=== PATIENT | female | born 1980 | race Caucasian/White ===

== ENCOUNTER 2020-01-06 17:36 | Inpatient (IN) | payer MEDICARE, SELFPAY ==
[2020-01-06] VITALS (9 sets, daily range): BP systolic 113–159; BP diastolic 75–94; PULSE 82–95; RESP 16–18; TEMP 36.7–36.9; O2SAT 91–97; BMI 48.5
--- NOTE | 2020-01-06 17:56 | CTR_ITS ---
PROCEDURE INFORMATION: Exam: CTA Left Lower Extremity With Contrast Exam date and time: 01/06/2020 6:23 PM Age: 39 years old Clinical indication: Injury or trauma; Fall; Fracture, traumatic; Closed fracture; Fibula and tibia; Left; Prior surgery; Additional info: Knee dislocation/fracture TECHNIQUE: Imaging protocol: Computed tomographic angiography of the Left lower extremity with intravenous contrast. 3D rendering (Not supervised by radiologist): MIP and/or 3D reconstructed images were created by the technologist. Radiation optimization: All CT scans at this facility use at least one of these dose optimization techniques: automated exposure control; mA and/or kV adjustment per patient size (includes targeted exams where dose is matched to clinical indication); or iterative reconstruction. Contrast material: OMNI 350; Contrast volume: 95 ml; Contrast route: INTRAVENOUS (IV); COMPARISON: DX Tibia and Fibula LEFT [id number] 01/06/2020 3:15 PM RADIATION DOSE METRICS: Total DLP (mGy-cm): 1.38 FINDINGS: Left femoral/popliteal arteries: Atherosclerotic calcifications with multifocal mild stenosis in the left superficial femoral artery. The left popliteal artery is small in size with plaque and mild-moderate stenosis. Left infrapopliteal arteries: The left anterior tibial artery is patent to the foot. The left posterior tibial artery appears occluded. The left peroneal artery is patent and collateralizes with the posterior tibial artery in the ankle. Reproductive: IUD located in the lower uterine segment and cervix. Bones/joints: Comminuted depressed fracture in the medial tibial plateau. Oblique fracture extending to the articular surface of the lateral tibial plateau and into the proximal tibial metaphysis. Mildly displaced fracture in the proximal tip of the left fibula. Old healed fractures in the distal left tibia and fibula. Screws in the mid left tibia. Left knee lipohemarthrosis, with extension into a popliteal cyst. Soft tissues: Mild left prepatellar and pretibial soft tissue edema. CT/CT angio [facility] [id number] IMPRESSION: 1. Fractures involving the medial and lateral left tibial plateau and proximal metaphysis. 2. Proximal left fibula fracture. 3. Left knee lipohemarthrosis. 4. Atherosclerotic disease in the left superficial femoral and popliteal artery with mild to moderate stenosis of the popliteal artery. This is most likely atherosclerotic in etiology. No evidence for transsection of the artery or definite dissection. 5. Obstruction of the left posterior tibial artery which is reconstituted in the ankle. Radiation Dose CTDIVOL = (mGy): DLP = 2041.38 (mGy-cm)
[2020-01-06] MEDS: ondansetron 2 mg/ML SDV 2 mL 4 MG IVP ×2 (18:20→22:44)
[2020-01-06] MEDS: HYDROmorphone 1 mg/mL INJ 1 mL 0.5 MG IVP ×2 (18:24→21:24)
[2020-01-06] MEDS: iohexol 350 mg/mL 100 mL Btl IV (18:54)
[2020-01-06 19:51] LABS: Basophils # 0.1 10^3/uL (0.0-0.1); Basophils % 0.5 %; Eosinophils % 0.3 %; Hematocrit 35.5 % (37.0-47.0); Hemoglobin 11.6 g/dL (11.5-15.3); Lymphocytes % 20.1 %; Mean Corpuscular HGB Conc 32.7 g/dL (30.0-36.0); Mean Corpuscular Hemoglobin 31.3 pg (28.0-34.0); Mean Corpuscular Volume 95.7 fL (81-99); Mean Platelet Volume 11.2 fL (7.4-10.4); Monocytes # 0.6 10^3/uL (0.2-0.9); Monocytes % 5.6 %; Neutrophils # 7.31 10^3/uL (1.8-7.7); Neutrophils % 73.3 %; Nucleated Red Blood Cells % 0 %; Platelet Count 221 10^3/cmm (130-400); Red Blood Count 3.71 10^6/uL (4.1-5.3); Red Cell Distribution Width 12.2 % (12.1-15.1)
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
[2020-01-06 20:08] LABS: Alanine Aminotransferase 16 U/L (0-33); Albumin Level 3.1 g/dL (3.5-5.2); Alkaline Phosphatase 119 IU/L (35-105); Aspartate Amino Transferase 17 U/L (0-32); Blood Urea Nitrogen 12 mg/dL (6-20); Calcium 8.6 mg/dL (8.5-10.5); Carbon Dioxide 26 mmol/L (22-29); Chloride 102 mmol/L (98-107); Glomerular Filtration Rate 110.2 mL/min (90-130); Glucose 321 mg/dL (65-115); Osmolality Calculated 296 mOsm/kg (285-295); Sodium 137 mmol/L (136-145); Total Bilirubin 0.3 mg/dL (0.15-1.2); Total Protein 6.1 g/dL (6.6-8.7)
[2020-01-06 20:12] LABS: Anion Gap 13.4 (5-19); Potassium 4.4 mmol/L (3.5-5.1)
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
[2020-01-06] MEDS: insulin aspart 70/30 100 units/1 mL 12 UNIT SUBCUT (21:54)
--- NOTE | 2020-01-06 22:12 | PC.NURSE ---
Wrong insulin ordered. Physician changed.
--- NOTE | 2020-01-06 22:52 | PC.NURSE ---
Patient blood glucose is 290, nurse was informed
[2020-01-07] VITALS (27 sets, daily range): BP systolic 116–186; BP diastolic 70–98; PULSE 74–118; RESP 16–22; TEMP 36.5–37.4; O2SAT 94–100
--- NOTE | 2020-01-07 | SCC_ITS ---
Procedure Done: ORIF left Bicodylar tibial plateau fracture 108.4 seconds of fluoroscopic guidance, for a cumulative dose of 8.85 mGy, was provided to Dr. Hutson by the radiology department. C-arm images of the LEFT knee were saved for the patient's permanent record. [facility]
[2020-01-07] MEDS: sodium chloride 0.9% 1,000 ML 50 ML IV ×2 (00:27→19:34)
[2020-01-07 00:46] LABS: Glucose Point of Care 271 mg/dL (70-110)
[2020-01-07] MEDS: HYDROmorphone 1 mg/mL INJ 1 mL 2 MG IVP ×3 (01:50→23:36)
[2020-01-07] MEDS: ondansetron 2 mg/ML SDV 2 mL 4 MG IVP ×5 (04:47→17:56)
[2020-01-07 06:01] LABS: Basophils % 0.4 %; Eosinophils # 0.1 10^3/uL (0.0-0.8); Eosinophils % 0.6 %; Hematocrit 37.5 % (37.0-47.0); Hemoglobin 11.8 g/dL (11.5-15.3); Lymphocytes # 1.9 10^3/uL (0.8-4.8); Lymphocytes % 23.4 %; Mean Corpuscular HGB Conc 31.5 g/dL (30.0-36.0); Mean Corpuscular Hemoglobin 30.9 pg (28.0-34.0); Mean Corpuscular Volume 98.2 fL (81-99); Mean Platelet Volume 11.5 fL (7.4-10.4); Monocytes # 0.7 10^3/uL (0.2-0.9); Monocytes % 8.5 %; Neutrophils # 5.43 10^3/uL (1.8-7.7); Neutrophils % 66.9 %; Nucleated Red Blood Cells % 0 %; Platelet Count 228 10^3/cmm (130-400); Red Blood Count 3.82 10^6/uL (4.1-5.3); Red Cell Distribution Width 12.5 % (12.1-15.1); White Blood Count 8.1 10^3/uL (4.0-10.0)
[2020-01-07 06:22] LABS: Anion Gap 13.3 (5-19); Blood Urea Nitrogen 14 mg/dL (6-20); Calcium 8.7 mg/dL (8.5-10.5); Carbon Dioxide 27 mmol/L (22-29); Chloride 98 mmol/L (98-107); Glomerular Filtration Rate 92.2 mL/min (90-130); Glucose 301 mg/dL (65-115); Osmolality Calculated 290 mOsm/kg (285-295); Potassium 4.3 mmol/L (3.5-5.1); Sodium 134 mmol/L (136-145)
[2020-01-07 07:25] LABS: Glucose Point of Care 284 mg/dL (70-110)
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
--- NOTE | 2020-01-07 10:57 | ECG_ITS ---
[facility] Test Date: 2020-01-07 Pat Name: Belkys Ramon Department: Room: 277 Gender: Female National Coverage Specialist: : 1980 Requested By: Riki Estrada Order Number: [id number] Emma MD: Bertha Randall M.D. 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 [id number]
--- NOTE | 2020-01-07 11:01 | PM.PN ---
Subjective Subjective: Interval history: Patient is nauseous this morning during my evaluation. She is vomiting green bilious fluid. She is convinced that she is nauseous because she did not eat anything for the last 24 hours. She denies chest pain or shortness of breath. She denies abdominal pain. She denies any problems with bowel movement or urination. She currently has Bain catheter. She had mechanical fall with tib-fib fracture. She just received analgesics earlier. She reports that if she tries to fall asleep her nausea goes away. Reports that when she is awake her nausea comes back. She is type I diabetic since age 6. She denies any previous history of heart disease or stroke. She reports that she is not very active but frequently walks to the barn and back. [place] [address] Reports that she always walks to the barn and back with her daughter or next to her because I am clumsy and I do not want to fall . She denies chest pain with exertion and reports that she may get a little bit of dyspnea with mentioned activity for short period of time and is been unchanged for many years. Vitals/I&O/Wt Last Vital Signs Temp 98.7 F 01/07/20 08:00 Pulse 88 01/07/20 08:00 Resp 18 01/07/20 08:09 BP 122/75 01/07/20 08:00 Pulse Ox 98 01/07/20 08:00 01/06/20 01/07/20 01/07/20 22:59 06:59 14:59 Output Total 1500 / 1500 Balance -1500 / -1500 Weight last 48 hrs Weight 124.284 kg Physical Exam Const: COMMON NORMALS: no acute distress and patient oriented x3 Resp: COMMON NORMALS: normal respiratory effort and clear to auscultation bilaterally AUSCULTATION: clear to auscultation bilaterally Cardio: COMMON NORMALS: regular rate, regular rhythm and S2 normal heart sound present RATE: regular rate RHYTHM: regular rhythm HEART SOUNDS: S2 normal heart sound present OTHER: No lower extremity edema GI: COMMON NORMALS: Normal to inspection, nondistended, normoactive bowel sounds present, Soft to palpation and non-tender PALPATION: Yes Soft to palpation Neuro: COMMON NORMALS: patient oriented x3 and no focal motor deficits Data : 01/07/20 05:21 11/20/20 05:21 A&P Assessment and plan (1) Left fibular fracture: Status: Acute (2) Tibial plateau fracture, left: Status: Acute (3) Hyperglycemia: Status: Acute Additional A&P Information Left tibial and fibular fracture No hemodynamic compromise noted Lower extremity pulses intact Her lower extremity will be splinted in the ER again Orthopedic surgeon is consulted We will keep her n.p.o. after midnight Dilaudid for analgesia along bowel regimen Perioperative management: Patient is independent for daily activities fully functional, does not need any cardiac work-up before any surgical intervention, she will need good wound care postoperatively considering suboptimally controlled hyperglycemia, holding losartan Type 1 diabetes with hyperglycemia Patient is stating that her last A1c was above 10 Hyperglycemia without DKA, in the ER she is getting long-acting insulin, considering n.p.o. status I will keep her on low-dose sliding scale, check blood sugar every 6 hours, we will keep her on normal saline fluid resuscitation for now once she is below 200 consider adding D5 half-normal saline fluid resuscitation Considering suboptimal control type 1 diabetes this might delay her wound healing, History of depression No acute exacerbation Patient seems very concerned about her telemetry her daughter who has PTSD(after father's secondary to cancer complications) Holding antidepressants for now N.p.o. DVT prophylaxis: Considering tibiofibular fracture would avoid putting compression stockings on left leg, right leg I would use compression device to prevent DVT, avoid anticoagulant agent, she might need surgical intervention in the morning Full code PLAN: Start patient on telemetry and check EKG and troponin. Patient's nausea is likely related to opioid medication but because of history of diabetes will further evaluate and monitor. Obtain UA to rule out UTI. Attestations Medical Necessity Statement*: Patient with tib-fib fracture requires close inpatient monitoring and treatment including surgical intervention. 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
[2020-01-07 11:05] LABS: Glucose Point of Care 272 mg/dL (70-110)
--- NOTE | 2020-01-07 11:07 | PC.CHAP ---
Pastoral Care Encounter/Spiritual Assessment Type of Contact [] Declined plate colorer visit [] Patient/Family/Request visit [] Outpatient visit [] Follow-up visit [] Physician referral [] Code/Alert [] Routine visit [] Staff referral [] Actively dying [xx] Patient sleeping [] Family support [] [] Out of room [] Palliative care [] [] Receiving care in room [] Pre-surgical visit [] Trauma [] Long length of stay [] ICU visit [xx] Other: follow up needed. Relational/Emotional Strength [] Patient feels connected with others/family/visitors/staff [] Distress [] Loneliness/isolation [] Abandonment Spirituality of Patient [] Person of Radha [] Attends Tenriism of their Radha [] Believes in Prayer [] Reads Bible or Yarsanism materials [] There are Spiritual issues to be addressed Bookkeeper Assistant Interventions [] Prayer [] Active listening [] Non-anxious presence [] Spiritual/emotional support [] Crisis/trauma care [] Spiritual counseling [] Bereavement support [] Provided bereavement packet [] Provided Bible/devotional materials [] Provided toy/stuffed animal, coloring book to patient or family member [] Provided Communion [] Anointing/[place] [] Salvation [] Completed spiritual assessment [] Other: Impact on Illness or Injury [] Angry [] Fearful [] Anxious [] Often cries [] Exhaustion [] Unable to work [] Unable to attend church [] Unable to walk/stand [] Unable to read [] Unable to drive [] Unable to eat/drink [] Unable to sleep [] Unable to be with family [] Patient intubated [] Other: Summary Pt on pain meds and will be sleeping for lengthy time. Time spent with patient
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
[2020-01-07 11:40] LABS: Bilirubin Urine Neg (Negative); Blood Urine 2+ (Negative); Glucose Urine UA 4+ (Normal); Ketones Urine 1+ (Negative); Leukocyte Esterase Urine 2+ (Negative); Nitrate Urine Negative (Negative); Protein Urine Neg (Negative); Urine Appearance Cloudy (CLEAR); Urine Color Yellow (Yellow); Urobilinogen Urine Norm (Negative); pH Urine 5 (5-7)
[2020-01-07 11:41] LABS: Add Urine Culture? Yes; Bacteria Urine 3+ /hpf; RBC Urine 0-4 /hpf (0-2); Squamous Epithelial Cell Urine 0-4 /hpf (0-5); WBC Urine 40-55 /hpf (0-5)
[2020-01-07 11:58] LABS: Troponin T (5th) Once 7 ng/L (0-10)
--- NOTE | 2020-01-07 13:35 | ECG_ITS ---
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 Measurements Intervals [place] Rate: 96 P: 73 UT: 142 QRS: 33 QRSD: 88 T: 38 QT: 355 QTc: 450 Interpretive Statements SINUS RHYTHM Compared to ECG 01/07/2020 11:38:22 No significant changes Electronically Signed On 01-07-2020 19:57:19 ENVIRONMENTAL SAFETY SPECIALIST by Bertha Randall M.D. [email or web address]
--- NOTE | 2020-01-07 14:13 | W.PM.OPSUD ---
Surgery/Procedure H&P Update DATE OF PROCEDURE: January 07, 2020 DATE H&P PERFORMED: 01/06/20 H&P UPDATE INFORMATION: I have reviewed H&P completed within last 30 days, I have examined patient prior to procedure and No changes to prior documentation PREOP DIAGNOSIS: Tibial plateau fracture PLANNED PROCEDURE: Operation Date: 01/07/20 14:45 Proposed Procedures p ORIF Tibial Plateau(Left) - Cruzito Hutson DO
[2020-01-07] MEDS: fentaNYL 50 mcg/mL INJ 2mL 100 MCG IVP (14:22)
--- NOTE | 2020-01-07 14:25 | SUR.PREOP ---
Pt with complaint of severe left tib/fib pain. Good left pedal pulse. Order recieved from doctor Kaelyn to give pain medication. Pt also medicated for nausea.
--- NOTE | 2020-01-07 14:36 | SUR.PREOP ---
ice pack applied to affected area. .
--- NOTE | 2020-01-07 16:25 | SUR.OPER ---
Family (zahira) Notified Of Patient's Status Via Phone.
[2020-01-07 17:14] LABS: Glucose Point of Care 290 mg/dL (70-110)
--- NOTE | 2020-01-07 17:22 | P.OP_ITS ---
Operative Report Date of procedure: January 07, 2020 Pre-op Diagnosis: Tibial plateau fracture left Post-op diagnosis: same Procedure Done: ORIF left Bicodylar tibial plateau fracture Surgeon: Cruzito Hutson Anesthesia: General Estimated blood loss (mL): 25 Condition: stable Disposition: PACU Procedure: Patient was brought to the operative suite placed in the supine position all areas impingement well-padded patient's prepped and draped normal sterile fashion skin was made over the lateral aspect of the to plateau. Fracture was reduced with traction a [place] plate was placed with a 10 hole plate multiple screws were placed approximately 3 screws placed distal to the fracture AP and lateral fluoroscopy ensured the fracture was improved position wounds were irrigated closed with Vicryl and christiano sterile dressings applied and patient is transferred to the PACU in stable condition temperature care and assist as [facility] assist
--- NOTE | 2020-01-07 17:23 | XR_ITS ---
WS: [id number] XR knee LT 1-2V [id number] REASON FOR EXAM: LEG FRACTURE FINDINGS: Moderate degenerative arthropathy in the patellofemoral joint space. Plate and screw fixation of bilateral tibial plateau fractures. Bony structure and surgical appliance appear in proper position and alignment. Medial and lateral knee joint spaces are well preserved. XR/XR knee LT 1-2V [id number] IMPRESSION: Fixation of tibial fracture as above.
[2020-01-07] MEDS: fentaNYL 50 mcg/mL INJ 2mL IVP ×2 (17:30→17:35)
--- NOTE | 2020-01-07 17:30 | SUR.OPER ---
dr manuel attempted to call Matthias (family) via phone and phone service stated phone disconnected. dr. manuel contacted nurse Ok about disconnected phone line. attempted the phone # again and received phone disconnected message.
[2020-01-07] MEDS: gabapentin 300 mg Capsule PO (17:50)
[2020-01-07] MEDS: oxyCODONE 10 mg ER (12 HR) Tablet PO (18:00)
[2020-01-07] MEDS: sodium chloride 0.9% 1,000 ML 30 ML IV (18:29)
--- NOTE | 2020-01-07 18:48 | ANE.PACU2 ---
Inpatient post-anesthesia follow up: Airway intact: Yes Vital signs: Temperature 98.2 F Pulse Rate [Apical ] 93 Pulse Rate 104 Respiratory Rate 20 Blood Pressure [Ri ght Arm] 141/94 Blood Pressure 156/83 Pulse Oximetry 96 Oxygen Delivery Me thod Room Air Oxygen Flow Rate 8 Fraction of Inspir ed Oxygen Hydration adequate: Yes Nausea and vomiting: No Pain level: 4 Mental status: Baseline
[2020-01-07] MEDS: diphenhydrAMINE 50 mg Capsule PO (19:31)
[2020-01-07] MEDS: cefTRIAXone 2,000 MG in sodium chloride 0.9% (plus) 50 ML 100 MG IV (19:34)
[2020-01-07] MEDS: HYDROcodone-acetaminophen 5-325 mg Tablet 1 TAB PO (21:02)
[2020-01-07] MEDS: acetaminophen 325 mg Tablet 650 MG PO (21:03)
[2020-01-07 21:14] LABS: Glucose Point of Care 390 mg/dL (70-110)
[2020-01-08] VITALS (13 sets, daily range): BP systolic 106–134; BP diastolic 62–75; PULSE 95–108; RESP 16–22; TEMP 36.7–37.4; O2SAT 93–97
[2020-01-08] MEDS: HYDROcodone-acetaminophen 5-325 mg Tablet 1 TAB PO ×2 (03:22→10:28)
[2020-01-08] MEDS: HYDROmorphone 1 mg/mL INJ 1 mL 2 MG IVP ×3 (05:58→21:38)
[2020-01-08] MEDS: enoxaparin 40 mg/0.4 mL Syringe SUBCUT (06:31)
[2020-01-08 06:47] LABS: Glucose Point of Care 322 mg/dL (70-110)
--- NOTE | 2020-01-08 08:14 | P.PN_ITS ---
Subjective Subjective: Interval history: Patient doing well in bed pain is significantly better than it was yesterday. I discussed going home with her and she was agreeable to do this. She will likely need a walker to ambulate. Vitals/I&O/Wt Last Vital Signs Temp 99.3 F 01/08/20 07:36 Pulse 105 H 01/08/20 07:36 Resp 18 01/08/20 07:36 BP 106/70 01/08/20 07:36 Pulse Ox 95 01/08/20 07:36 01/07/20 01/08/20 01/08/20 22:59 06:59 14:59 Intake Total 1015.833 / 1015.833 300 / 1315.833 Output Total 1250 / 1575 900 / 2475 Balance -234.167 / -559.167 -600 / -1159.167 Weight last 48 hrs Weight 274 lb Physical Exam Narrative: EXAM NARRATIVE: Left lower extremity in [place] wrap no evidence of any bleeding through the dressing. Sensation is intact in bilateral toes move ankle up and down. Urinary Catheter Management^: Bain: Cath Placed During This Visit: no Data : 01/07/20 05:21 01/07/20 05:21 A&P Additional A&P Information Postop day 1 left open reduction internal fixation of tibial plateau. Plan will be to discharge her today. She is to follow-up in the clinic in 2 weeks she should be on Lovenox 40 mg once a day for 4 weeks. 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
--- NOTE | 2020-01-08 08:19 | ANE.PACU2 ---
Inpatient post-anesthesia follow up: Airway intact: Yes Vital signs: Temperature 99.3 F Pulse Rate [Apical ] 93 Pulse Rate 105 Respiratory Rate 18 Blood Pressure [Ri ght Arm] 141/94 Blood Pressure 106/70 Pulse Oximetry 95 Oxygen Delivery Me thod Room Air Oxygen Flow Rate 8 Fraction of Inspir ed Oxygen Hydration adequate: Yes Nausea and vomiting: No Pain level: 3 Mental status: Baseline Additional Comments: Nauseated again after her morning medications
[2020-01-08] MEDS: BuSPIRONE 10 mg Tablet PO ×3 (09:03→21:45)
[2020-01-08] MEDS: diphenhydrAMINE 50 mg Capsule PO ×2 (09:03→18:23)
[2020-01-08] MEDS: atorvastatin 40 mg Tablet PO (09:03)
[2020-01-08] MEDS: sennosides-docusate Tablet 1 TAB PO (09:03)
[2020-01-08] MEDS: levothyroxine 150 mcg Tablet PO (09:03)
[2020-01-08] MEDS: losartan 50 mg Tablet PO (09:03)
[2020-01-08] MEDS: fluoxetine 20 mg Capsule PO (09:03)
--- NOTE | 2020-01-08 10:20 | P.PN_ITS ---
Subjective Subjective: Interval history: Patient is nauseous this morning but denies chest pain or shortness of breath. Denies abdominal pain. Her urine is growing Enterococcus and staph aureus. Vitals/I&O/Wt Last Vital Signs Temp 99.3 F 01/08/20 07:36 Pulse 105 H 01/08/20 07:36 Resp 18 01/08/20 07:36 BP 106/70 01/08/20 09:03 Pulse Ox 95 01/08/20 07:36 01/07/20 01/08/20 01/08/20 22:59 06:59 14:59 Intake Total 1015.833 / 1015.833 300 / 1315.833 Output Total 1250 / 1575 900 / 2475 Balance -234.167 / -559.167 -600 / -1159.167 Weight last 48 hrs Weight 124.284 kg Physical Exam Const: COMMON NORMALS: no acute distress and patient oriented x3 Resp: COMMON NORMALS: normal respiratory effort and clear to auscultation bilaterally AUSCULTATION: clear to auscultation bilaterally Cardio: COMMON NORMALS: regular rate, regular rhythm and S2 normal heart sound present RATE: regular rate RHYTHM: regular rhythm HEART SOUNDS: S2 normal heart sound present OTHER: No lower extremity edema. Left lower extremity dressed GI: COMMON NORMALS: Normal to inspection, nondistended, normoactive bowel sounds present, Soft to palpation and non-tender PALPATION: Yes Soft to palpation Neuro: COMMON NORMALS: patient oriented x3 and no focal motor deficits Urinary Catheter Management^: Bain: Cath Placed During This Visit: no Data : 01/07/20 05:21 01/07/20 05:21 Micro: Microbiology 01/07/20 11:20 Urine Culture - Preliminary Urine,Clean Catch Staphylococcus aureus Enterococcus species A&P Assessment and plan (1) Left fibular fracture: Status: Acute (2) Tibial plateau fracture, left: Status: Acute (3) Hyperglycemia: Status: Acute Additional A&P Information Left tibial and fibular fracture No hemodynamic compromise noted Lower extremity pulses intact Her lower extremity will be splinted in the ER again Orthopedic surgeon is consulted We will keep her n.p.o. after midnight Dilaudid for analgesia along bowel regimen Perioperative management: Patient is independent for daily activities fully functional, does not need any cardiac work-up before any surgical intervention, she will need good wound care postoperatively considering suboptimally controlled hyperglycemia, holding losartan Type 1 diabetes with hyperglycemia Patient is stating that her last A1c was above 10 Hyperglycemia without DKA, in the ER she is getting long-acting insulin, considering n.p.o. status I will keep her on low-dose sliding scale, check blood sugar every 6 hours, we will keep her on normal saline fluid resuscitation for now once she is below 200 consider adding D5 half-normal saline fluid resuscitation Considering suboptimal control type 1 diabetes this might delay her wound healing, History of depression No acute exacerbation Patient seems very concerned about her telemetry her daughter who has PTSD(after father's secondary to cancer complications) Holding antidepressants for now Urinary tract infection, present on admission. Urine growing Enterococcus faecalis and staph aureus N.p.o. DVT prophylaxis: Considering tibiofibular fracture would avoid putting compression stockings on left leg, right leg I would use compression device to prevent DVT, avoid anticoagulant agent, she might need surgical intervention in the morning Full code PLAN: Obtain blood cultures. Awaiting morning labs. Will try 1 tablet Reglan for nausea. Switch ceftriaxone to vancomycin. Awaiting urine culture results. Discussed with Dr. Hutson and patient will require 30 days of outpatient Lovenox anticoagulation for DVT prophylaxis. Attestations Medical Necessity Statement*: Patient with diabetes mellitus type 1 and symptomatic UTI requires close inpatient monitoring and treatment until deemed safe for discharge. Time Spent in Patient Care: 16 - 35 minutes Coding Level of Care Code Acute Manager Environmental Health for Beata Messer Diagnoses Left fibular fracture S82.402A Tibial plateau fracture, left S82.142A Hyperglycemia R73.9
[2020-01-08] MEDS: metoclopramide 10 mg Tablet 5 MG PO (10:27)
[2020-01-08 10:41] LABS: Glucose Point of Care 225 mg/dL (70-110)
[2020-01-08 14:11] LABS: Alanine Aminotransferase 11 U/L (0-33); Alkaline Phosphatase 116 IU/L (35-105); Anion Gap 17.1 (5-19); Aspartate Amino Transferase 13 U/L (0-32); Blood Urea Nitrogen 18 mg/dL (6-20); Calcium 8.4 mg/dL (8.5-10.5); Carbon Dioxide 22 mmol/L (22-29); Chloride 96 mmol/L (98-107); Glucose 381 mg/dL (65-115); Osmolality Calculated 290 mOsm/kg (285-295); Potassium 4.1 mmol/L (3.5-5.1); Sodium 131 mmol/L (136-145); Total Bilirubin 0.2 mg/dL (0.15-1.2)
[2020-01-08 17:19] LABS: Glucose Point of Care 444 mg/dL (70-110)
[2020-01-08] MEDS: HYDROcodone-acetaminophen 5-325 mg Tablet PO (18:56)
[2020-01-08 20:24] LABS: Glucose Point of Care 435 mg/dL (70-110)
[2020-01-08 20:59] LABS: Glucose Point of Care 323 mg/dL (70-110)
[2020-01-08] MEDS: acetaminophen 325 mg Tablet 650 MG PO (21:45)
[2020-01-09] MEDS: ondansetron 2 mg/ML SDV 2 mL 4 MG IVP (01:41)
[2020-01-09] MEDS: HYDROcodone-acetaminophen 5-325 mg Tablet PO ×5 (01:46→22:09)
[2020-01-09 03:34] VITALS: BP 125/73; PULSE 97; RESP 18; TEMP 36.9; O2SAT 94
[2020-01-09 03:58] VITALS: RESP 18
[2020-01-09] MEDS: HYDROmorphone 1 mg/mL INJ 1 mL 2 MG IVP (03:58)
[2020-01-09] MEDS: enoxaparin 40 mg/0.4 mL Syringe SUBCUT (06:01)
[2020-01-09 06:17] LABS: Alanine Aminotransferase 9 U/L (0-33); Albumin Level 3.1 g/dL (3.5-5.2); Alkaline Phosphatase 116 IU/L (35-105); Anion Gap 16.8 (5-19); Aspartate Amino Transferase 12 U/L (0-32); Blood Urea Nitrogen 18 mg/dL (6-20); Calcium 8.4 mg/dL (8.5-10.5); Carbon Dioxide 22 mmol/L (22-29); Chloride 97 mmol/L (98-107); Glucose 317 mg/dL (65-115); Osmolality Calculated 288 mOsm/kg (285-295); Potassium 3.8 mmol/L (3.5-5.1); Sodium 132 mmol/L (136-145); Total Bilirubin 0.2 mg/dL (0.15-1.2); Total Protein 6.1 g/dL (6.6-8.7)
[2020-01-09 07:09] LABS: Glucose Point of Care 351 mg/dL (70-110)
[2020-01-09 07:56] LABS: Basophils # 0.1 10^3/uL (0.0-0.1); Basophils % 0.6 %; Eosinophils # 0.1 10^3/uL (0.0-0.8); Eosinophils % 1.2 %; Hematocrit 33.5 % (37.0-47.0); Hemoglobin 10.3 g/dL (11.5-15.3); Lymphocytes # 2.3 10^3/uL (0.8-4.8); Lymphocytes % 29.3 %; Mean Corpuscular HGB Conc 30.7 g/dL (30.0-36.0); Mean Corpuscular Hemoglobin 31.1 pg (28.0-34.0); Mean Corpuscular Volume 101.2 fL (81-99); Mean Platelet Volume 10.9 fL (7.4-10.4); Monocytes # 0.5 10^3/uL (0.2-0.9); Neutrophils # 4.77 10^3/uL (1.8-7.7); Neutrophils % 61.6 %; Nucleated Red Blood Cells % 0 %; Platelet Count 258 10^3/cmm (130-400); Red Blood Count 3.31 10^6/uL (4.1-5.3); Red Cell Distribution Width 12.5 % (12.1-15.1); White Blood Count 7.7 10^3/uL (4.0-10.0)
[2020-01-09 08:22] VITALS: BP 121/60; PULSE 103; RESP 19; TEMP 36.8; O2SAT 96
[2020-01-09] MEDS: losartan 50 mg Tablet PO (08:24)
[2020-01-09] MEDS: atorvastatin 40 mg Tablet PO (08:24)
[2020-01-09] MEDS: fluoxetine 20 mg Capsule PO (08:24)
[2020-01-09] MEDS: sennosides-docusate Tablet 1 TAB PO (08:24)
[2020-01-09] MEDS: BuSPIRONE 10 mg Tablet PO ×3 (08:24→20:43)
[2020-01-09] MEDS: diphenhydrAMINE 50 mg Capsule PO ×2 (08:24→17:07)
[2020-01-09] MEDS: levothyroxine 150 mcg Tablet PO (08:24)
--- NOTE | 2020-01-09 09:14 | PM.PN ---
Subjective Subjective: Interval history: Pain relatively controlled. Okay to discharge from my standpoint. Vitals/I&O/Wt Last Vital Signs Temp 98.2 F 01/09/20 08:22 Pulse 103 H 01/09/20 08:22 Resp 19 H 01/09/20 08:22 BP 121/60 01/09/20 08:22 Pulse Ox 96 01/09/20 08:22 01/08/20 01/09/20 01/09/20 22:59 06:59 14:59 Intake Total 360 / 540 360 / 900 Output Total 600 / 600 200 / 800 300 / 300 Balance -240 / -60 160 / 100 -300 / -300 Physical Exam Narrative: EXAM NARRATIVE: Dressing clean dry and intact. Urinary Catheter Management^: Bain: Cath Placed During This Visit: yes, but has since been removed by the nurse Reason for Continuing Indwelling Catheter: Required Immobilization for Trauma or Surgery or Anesthesia Date Urinary Catheter Removed: 01/08/20 Time Urinary Catheter Discontinued: 15:54 Data : 01/09/20 07:36 01/09/20 05:32 Micro: Microbiology 01/08/20 13:32 Blood Culture - Preliminary Blood SPECIMEN COLLECTED 01/08/20 13:22 Blood Culture - Preliminary Blood SPECIMEN COLLECTED 01/07/20 11:20 Urine Culture - Preliminary Urine,Clean Catch Staphylococcus aureus Enterococcus species A&P Additional A&P Information Postop day 2 tibia ORIF. Okay to discharge from orthopedic standpoint but while she is in the hospital had physical therapy work with her and for range of motion exercises of her knee. She should be nonweightbearing left lower extremity. She should be on Lovenox and be discharged on Lovenox. Attestations Medical Necessity Statement*: uti Coding Level of Care Code Acute Retail Business Analyst for Beata Messer
[2020-01-09] MEDS: insulin glargine 100 units/1 mL 20 UNIT SUBCUT (09:39)
[2020-01-09 10:55] LABS: Glucose Point of Care 324 mg/dL (70-110)
[2020-01-09 11:00] VITALS: BP 127/68; PULSE 105; RESP 19; TEMP 36.9; O2SAT 97
--- NOTE | 2020-01-09 12:11 | PC.SOCIAL ---
IMM Update Pg. 2 of IMM updated and reviewed with patient who verbalized understanding.
--- NOTE | 2020-01-09 13:47 | P.PN_ITS ---
Subjective Subjective: Interval history: Reports that she continues to have significant pain despite taking 2 [place] tablets every 4 hours reports feeling weak. She understands the reason why IV Dilaudid was discontinued. She does not feel strong enough to be dismissed home and wants to have 1 more physical therapy tomorrow. Her urine is growing MSSA and Enterococcus faecalis. MSSA felt to be a contamination related to Bain catheter as it was placed prior to UA was requested. She reports some ringing in her ears off and on for last 2 days but otherwise her hearing is not affected. She denies shortness of breath or chest pain. Denies abdominal pain or nausea. Vitals/I&O/Wt Last Vital Signs Temp 98.5 F 01/09/20 11:00 Pulse 105 H 01/09/20 11:00 Resp 19 H 01/09/20 11:00 BP 127/68 01/09/20 11:00 Pulse Ox 97 01/09/20 11:00 01/08/20 01/09/20 01/09/20 22:59 06:59 14:59 Intake Total 360 / 540 360 / 900 360 / 360 Output Total 600 / 600 200 / 800 300 / 300 Balance -240 / -60 160 / 100 60 / 60 Physical Exam Const: COMMON NORMALS: no acute distress and patient oriented x3 Resp: COMMON NORMALS: normal respiratory effort and clear to auscultation bilaterally AUSCULTATION: clear to auscultation bilaterally Cardio: COMMON NORMALS: regular rate, regular rhythm and S2 normal heart sound present RATE: regular rate RHYTHM: regular rhythm HEART SOUNDS: S2 normal heart sound present OTHER: No lower extremity edema. Left lower extremity dressed GI: COMMON NORMALS: Normal to inspection, nondistended, normoactive bowel so unds present, Soft to palpation and non-tender PALPATION: Yes Soft to palpation Neuro: COMMON NORMALS: patient oriented x3 and no focal motor deficits Urinary Catheter Management^: Bain: Cath Placed During This Visit: yes, but has since been removed by the nurse Reason for Continuing Indwelling Catheter: Required Immobilization for Trauma or Surgery or Anesthesia Date Urinary Catheter Removed: 01/08/20 Time Urinary Catheter Discontinued: 15:54 Data : 01/09/20 07:36 01/09/20 05:32 Micro: Microbiology 01/08/20 13:22 Blood Culture - Preliminary Blood NEGATIVE TO DATE 01/07/20 11:20 Urine Culture - Final Urine,Clean Catch Staphylococcus aureus Enterococcus faecalis 01/08/20 13:32 Blood Culture - Preliminary Blood SPECIMEN COLLECTED A&P Assessment and plan (1) Left fibular fracture: Status: Acute (2) Tibial plateau fracture, left: Status: Acute (3) Hyperglycemia: Status: Acute (4) UTI (urinary tract infection): Status: Acute Additional A&P Information Left tibial and fibular fracture No hemodynamic compromise noted Lower extremity pulses intact Her lower extremity will be splinted in the ER again Orthopedic surgeon is consulted We will keep her n.p.o. after midnight Dilaudid for analgesia along bowel regimen Perioperative management: Patient is independent for daily activities fully functional, does not need any cardiac work-up before any surgical intervention, she will need good wound care postoperatively considering suboptimally controlled hyperglycemia, holding losartan Type 1 diabetes with hyperglycemia Patient is stating that her last A1c was above 10 Hyperglycemia without DKA, in the ER she is getting long-acting insulin, considering n.p.o. status I will keep her on low-dose sliding scale, check blood sugar every 6 hours, we will keep her on normal saline fluid resuscitation for now once she is below 200 consider adding D5 half-normal saline fluid resuscitation Considering suboptimal control type 1 diabetes this might delay her wound healing, History of depression No acute exacerbation Patient seems very concerned about her telemetry her daughter who has PTSD(after father's secondary to cancer complications) Holding antidepressants for now Urinary tract infection, present on admission. Urine growing Enterococcus faecalis and staph aureus N.p.o. DVT prophylaxis: Considering tibiofibular fracture would avoid putting compression stockings on left leg, right leg I would use compression device to prevent DVT, avoid anticoagulant agent, she might need surgical intervention in the morning Full code PLAN: Continue current monitoring and treatment including vancomycin for now and transition to amoxicillin at discharge. Continue physical therapy. Add Protonix for GI protection. Avoid NSAIDs. Continue physical therapy. Patient will require 30 days of outpatient Lovenox anticoagulation for DVT prophylaxis. Attestations Medical Necessity Statement*: Patient with tib-fib fracture post surgery and UTI requires close inpatient monitoring and treatment until deemed safe for discharge. Time Spent in Patient Care: 16 - 35 minutes Coding Level of Care Code Acute [employer] for [facility] Fwd Diagnoses Left fibular fracture S82.402A Tibial plateau fracture, left S82.142A Hyperglycemia R73.9 UTI (urinary tract infection) N39.0
[2020-01-09 16:03] VITALS: BP 120/60; PULSE 101; RESP 18; TEMP 36.8; O2SAT 96
[2020-01-09] MEDS: pantoprazole DR 40 mg Tablet PO (17:06)
[2020-01-09 17:17] LABS: Glucose Point of Care 339 mg/dL (70-110)
[2020-01-09 19:58] VITALS: BP 119/72; PULSE 100; RESP 17; TEMP 36.8; O2SAT 94
[2020-01-09 20:20] LABS: Glucose Point of Care 295 mg/dL (70-110)
[2020-01-10] VITALS (7 sets, daily range): BP systolic 137–149; BP diastolic 77–85; PULSE 95–101; RESP 18–19; TEMP 36.3–37.1; O2SAT 92–97
[2020-01-10] MEDS: HYDROcodone-acetaminophen 5-325 mg Tablet PO ×3 (02:12→11:24)
[2020-01-10] MEDS: enoxaparin 40 mg/0.4 mL Syringe SUBCUT (05:23)
[2020-01-10 05:50] LABS: Basophils % 0.5 %; Eosinophils # 0.1 10^3/uL (0.0-0.8); Eosinophils % 1.8 %; Hemoglobin 9.8 g/dL (11.5-15.3); Lymphocytes # 1.9 10^3/uL (0.8-4.8); Lymphocytes % 26.2 %; Mean Corpuscular HGB Conc 30.6 g/dL (30.0-36.0); Mean Corpuscular Hemoglobin 30.8 pg (28.0-34.0); Mean Corpuscular Volume 100.6 fL (81-99); Mean Platelet Volume 11.4 fL (7.4-10.4); Monocytes # 0.5 10^3/uL (0.2-0.9); Monocytes % 6.8 %; Neutrophils # 4.74 10^3/uL (1.8-7.7); Neutrophils % 64.4 %; Nucleated Red Blood Cells % 0 %; Platelet Count 251 10^3/cmm (130-400); Red Blood Count 3.18 10^6/uL (4.1-5.3); Red Cell Distribution Width 12.3 % (12.1-15.1); White Blood Count 7.4 10^3/uL (4.0-10.0)
[2020-01-10 06:18] LABS: Alanine Aminotransferase 8 U/L (0-33); Alkaline Phosphatase 122 IU/L (35-105); Anion Gap 21.1 (5-19); Aspartate Amino Transferase 14 U/L (0-32); Blood Urea Nitrogen 14 mg/dL (6-20); Calcium 8.2 mg/dL (8.5-10.5); Carbon Dioxide 21 mmol/L (22-29); Chloride 96 mmol/L (98-107); Globulin 3.2 g/dL (1.3-4.6); Glomerular Filtration Rate 110.2 mL/min (90-130); Glucose 369 mg/dL (65-115); Osmolality Calculated 294 mOsm/kg (285-295); Potassium 4.1 mmol/L (3.5-5.1); Sodium 134 mmol/L (136-145); Total Bilirubin 0.3 mg/dL (0.15-1.2); Total Protein 6.2 g/dL (6.6-8.7)
[2020-01-10 06:55] LABS: Glucose Point of Care 369 mg/dL (70-110)
--- NOTE | 2020-01-10 07:55 | P.PN_ITS ---
Subjective Subjective: Interval history: Pain controlled doing well. Vitals/I&O/Wt Last Vital Signs Temp 98.7 F 01/10/20 07:48 Pulse 99 01/10/20 07:48 Resp 19 H 01/10/20 07:48 BP 137/78 01/10/20 07:48 Pulse Ox 97 01/10/20 07:48 01/09/20 01/10/20 01/10/20 22:59 06:59 14:59 Intake Total 1300 / 1660 240 / 1900 Output Total 500 / 800 Balance 1300 / 1360 -260 / 1100 Physical Exam Narrative: EXAM NARRATIVE: Dressing dry moving toes up and down. Worked with physical therapy yesterday range of motion of the knee. Urinary Catheter Management^: Bain: Cath Placed During This Visit: yes, but has since been removed by the nurse Reason for Continuing Indwelling Catheter: Required Immobilization for Trauma or Surgery or Anesthesia Date Urinary Catheter Removed: 01/08/20 Time Urinary Catheter Discontinued: 15:54 Data : 01/10/20 04:45 01/10/20 04:45 Micro: Microbiology 01/08/20 13:32 Blood Culture - Preliminary Blood NEGATIVE TO DATE 01/08/20 13:22 Blood Culture - Preliminary Blood NEGATIVE TO DATE 01/07/20 11:20 Urine Culture - Final Urine,Clean Catch Staphylococcus aureus Enterococcus faecalis A&P Additional A&P Information Status post open reduction internal fixation of left tibial plateau fracture. Okay to discharge from orthopedic standpoint. She needs to go home on 30 days of Lovenox 40 mg subcu daily. She is to be nonweightbearing on left lower extremity work on gentle range of motion exercises of the knee. And follow-up in the clinic in 2 weeks. Attestations Medical Necessity Statement*: Pain Coding Level of Care Code Acute [employer] for [employer]
[2020-01-10] MEDS: pantoprazole DR 40 mg Tablet PO (08:52)
[2020-01-10] MEDS: losartan 50 mg Tablet PO (08:52)
[2020-01-10] MEDS: levothyroxine 150 mcg Tablet PO (08:52)
[2020-01-10] MEDS: BuSPIRONE 10 mg Tablet PO (08:52)
[2020-01-10] MEDS: atorvastatin 40 mg Tablet PO (08:52)
[2020-01-10] MEDS: sennosides-docusate Tablet 1 TAB PO (08:52)
[2020-01-10] MEDS: diphenhydrAMINE 50 mg Capsule PO (08:52)
[2020-01-10] MEDS: insulin glargine 100 units/1 mL 20 UNIT SUBCUT (08:53)
[2020-01-10] MEDS: fluoxetine 20 mg Capsule PO (08:53)
[2020-01-10 10:44] LABS: Glucose Point of Care 323 mg/dL (70-110)
--- NOTE | 2020-01-10 11:28 | P.DS_ITS ---
Discharge Providers Date of Admission: 01/06/20 21:02 Date of Discharge: January 10, 2020 Attending Provider at Admission: Dora Haas MD Attending Provider at Discharge: Tanner Chadwick MD Primary Care Provider: Val Dobbins DO Diagnoses at Discharge Discharge Diagnosis (1) Left fibular fracture: Status: Acute (2) Tibial plateau fracture, left: Status: Acute (3) Hyperglycemia: Status: Acute (4) UTI (urinary tract infection): Status: Acute Reason for Visit Reason for Visit: LEG FRACTURE Hospital Course Hospital Course Belkys is a 39-year-old white female who presents to the hospital with pain in her left ankle after falling at home. She was found to have a left tibial plateau fracture with bicondylar involvement. Orthopedics was consulted. She underwent surgery, on January 06 consisting of an ORIF of the tibial plateau fracture. She received antibiotics while in the hospital, secondary to UTI. By January 09, she was doing well enough from a postoperative standpoint to be sent home. Secondary to risk of DVT following orthopedic surgery she will have 30 more days of Lovenox. She will complete 5 days of Augmentin for staph and Enterococcus that grew out of her urine. She will follow-up closely with her primary care provider for her diabetes which is not well controlled. She will follow-up with orthopedics in 2 weeks, and follow their weightbearing instructions. Physical Exam Narrative: EXAM NARRATIVE: General exam no apparent distress, conversant Cardiovascular regular rate and rhythm without murmur Lungs clear Abdomen is soft with positive bowel sounds Extremities, dressing noted left lower extremity, distally cap refill was full with good range of motion of foot. Urinary Catheter Management^: Bain: Cath Placed During This Visit: yes, but has since been removed by the nurse Reason for Continuing Indwelling Catheter: Required Immobilization for Trauma or Surgery or Anesthesia Date Urinary Catheter Removed: 01/08/20 Time Urinary Catheter Discontinued: 15:54 Discharge Data Data Completed and Pending: Completed Studies During Hospitalization Category Date Time Status CT angio LE BI 73 [id number] Urgent Cat Scan 01/06/20 17:56 Completed XR knee LT 1-2V 7 3560 Routine Exams 01/07/20 17:23 Completed Pending at discharge Category Date Time Status Blood Culture Sta t Lab 01/08/20 13:32 Results Complete Blood Co unt w/Auto AM LABS Lab 01/11/20 04:00 Ordered Comprehensive Met abolic Panel AM LA BS Lab 01/11/20 04:00 Ordered Magnesium AM LABS Lab 01/11/20 04:00 Ordered Vancomycin Trough Routine Lab 01/10/20 12:00 Ordered Labs from last 24 hours 01/10/20 01/10/20 01/10/20 10:39 06:29 04:45 WBC RBC Hgb Hct MCV MCH MCHC RDW Plt Count MPV Neut % (Auto) Lymph % (Auto) [place] % (Auto) Eos % (Auto) Baso % (Auto) Neut # (Auto) Lymph # (Auto) [place] # (Auto) Eos # (Auto) Baso # (Auto) Nucleated RBC % (a uto) Nucleated RBCs # Sodium 134 L Potassium 4.1 Chloride 96 L Carbon Dioxide 21 L Anion Gap 21.1 H BUN 14 Creatinine 0.6 GFR Calculation 110.2 Glucose 369 H POC Glucose 323 369 Calculated Osmolal ity 294 Calcium 8.2 L Magnesium 2.0 Total Bilirubin 0.3 AST 14 ALT 8 Alkaline Phosphata se 122 H Total Protein 6.2 L Albumin 3.0 L Globulin 3.2 01/10/20 01/09/20 01/09/20 04:45 20:12 17:14 WBC 7.4 RBC 3.18 L Hgb 9.8 L Hct 32.0 L MCV 100.6 H MCH 30.8 MCHC 30.6 RDW 12.3 Plt Count 251 MPV 11.4 H Neut % (Auto) 64.4 Lymph % (Auto) 26.2 [place] % (Auto) 6.8 Eos % (Auto) 1.8 Baso % (Auto) 0.5 Neut # (Auto) 4.74 Lymph # (Auto) 1.9 [place] # (Auto) 0.5 Eos # (Auto) 0.1 Baso # (Auto) 0.0 Nucleated RBC % (a uto) 0 Nucleated RBCs # 0.0 Sodium Potassium Chloride Carbon Dioxide Anion Gap BUN Creatinine GFR Calculation Glucose POC Glucose 295 339 Calculated Osmolal ity Calcium Magnesium Total Bilirubin AST ALT Alkaline Phosphata se Total Protein Albumin Globulin Vitals: Last Vital Signs Temp 98.7 F 01/10/20 07:48 Pulse 97 01/10/20 08:15 Resp 18 01/10/20 08:15 BP 137/78 01/10/20 08:52 Pulse Ox 97 01/10/20 08:15 Discharge Plan Discharge Patient Disposition: Home Condition: Stable Prescriptions: New enoxaparin 40 mg/0.4 mL Syringe 40 mg SUBCUT Q24H 30 Days Qty: 12 RF: 0 amoxicillin-pot clavulanate [Augmentin] 875-125 mg tablet 1 tab PO BID Qty: 10 RF: 0 Continued losartan 50 mg tablet 50 mg PO DAILY RF: 0 atorvastatin 40 mg tablet 40 mg PO DAILY RF: 0 Tylenol 325 mg Tablet 650 mg PO BEDTIME RF: 0 hydrocodone-acetaminophen 5-325 mg tablet 1 tab PO Q6H PRN (Reason: Pain) RF: 0 Benadryl 25 mg Capsule 50 mg PO BID RF: 0 buspirone 10 mg tablet 10 mg PO TID RF: 0 levothyroxine 150 mcg tablet 150 mcg PO DAILY RF: 0 albuterol sulfate 90 mcg/actuation HFA aerosol inhaler See Rx Instructions .ROUTE .COMPLEX PRN (Reason: Shortness Of Breath) RF: 0 fluoxetine 20 mg capsule 20 mg PO DAILY RF: 0 Humalog KwikPen Insulin 100 unit/mL insulin pen See Rx Instructions .ROUTE .COMPLEX RF: 0 Lantus Solostar U-100 Insulin 100 unit/mL (3 mL) insulin pen 30 unit SUBCUT TID RF: 0 Discharge Orders: Discharge Order (Routine); Ordered 01/10/20 Ordered By: Tanner Chadwick Other Ambulatory Orders: DME: Walker (Order) Location: None Selected Ordered By: Riki Estrada Referrals: Cruzito Hutson DO [Physician] - 2 weeks Val Dobbins DO [Primary Care Provider] - 4-7 days Discharge Diet: Diabetic Discharge Activity: Increase activity as tolerated, Limit activity as instructed and Use walker/crutches as instructed Activity Restrictions/Additional Instructions: You are being discharged from the hospital today during which time you have been under the care of Caryl. You had a tibial plateau fracture. You were treated for this injury with open reduction internal fixation. You may resume you normal diet (including any special diets as directed by your primary doctor) as well as your home medications. You should follow up with you primary doctor if you have any questions regarding medication you took prior to your stay in the hospital. You may take your pain medication as prescribed. After the first few days, take your pain medication as needed. Do not drive or drink alcohol while taking your pain medication. Your injury may increase your risk of developing a blood clot,or DVT, in your arm or leg. This could potentially dislodge and travel to your lungs and become a life threatening condition called apulmonary embolus,or PE. You have been prescribed Lovenox to be taken to prevent this. Frequent movement of the legs will also help prevent this from occurring. If you develop any new or worsening cough, chestpain, bloody sputum or shortness of breath, call 911 or go to the EmergencyRoom. Always keep your surgical incision/dressing clean and dry. If you experience increasing pain at your incision site, redness, swelling, increasing discharge, foul odors, or fevers (greater than 100.4), night sweats or chills you should call the office at the above number. If you feel this is an emergency you should be evaluated in the Emergency Department of a nearby hospital. Orthopedic Patient Instructions Summary: Weight Bearing: Nonweightbearing left lower extremity Activity: As tolerated. Diet: Usual. Splint Care: Keep splint clean and dry. Cover with a plastic bag for bathing. Wound Care: Keep dressing clean and dry. Anticoagulation: Lovenox 40 mg once a day Pain Medication: Take only as needed. Ice, rest and elevation will be of great benefit. Please plan to follow-up [facility] Dr Hutson in 2 weeks. You will need to call the clinic [phone] to schedule this visit. Thank you far allowing me to participate in your care. Do not hesitate to call the office with any questions or concerns. Discharge Attestations Time Spent in Discharge Care*: greater than 30 min Quality Metrics Clinical Quality Measures During this hospital stay, did patient experience: None Coding Level of Care Code Acute [employer] Tr[employer] Fwd Diagnoses Left fibular fracture S82.402A Tibial plateau fracture, left S82.142A Hyperglycemia R73.9 UTI (urinary tract infection) N39.0
--- NOTE | 2020-01-10 14:12 | PC.NURSE ---
Went over discharge instructions with patient. All questions answered. Instructions given to patient. IV removed. Catheter intact. Site covered with 2x2 and coban. Patient left in wheelchair in private vehicle with spouse in stable condition.
== END 2020-01-10 14:16 | disposition home or self-care (01) | DRG 493 ==
LOC: ER 17:57 → MEDSURG 01-07 01:10
PROVIDERS: Internal Medicine; Orthopaedic Surgery; Admitting Provider Internal Medicine; Emergency Provider Emergency Medicine; PCP Family Medicine; Visit Provider Internal Medicine
PROC: 0QSH04Z Reposition Left Tibia with Internal Fixation Device, Open Approach (ICD-10-PCS; principal; 2020-01-07 14:45)
DX: S82.142A Displaced bicondylar fracture of left tibia, initial encounter for closed fracture (principal); N39.0 Urinary tract infection, site not specified; S82.402A Unspecified fracture of shaft of left fibula, initial encounter for closed fracture; I10 Essential (primary) hypertension; E10.65 Type 1 diabetes mellitus with hyperglycemia; W19.XXXA Unspecified fall, initial encounter; Y92.009 Unspecified place in unspecified non-institutional (private) residence as the place of occurrence of the external cause; F32.9 Major depressive disorder, single episode, unspecified; E03.9 Hypothyroidism, unspecified
CPT/HCPCS: 12345; 36415; 36416; 73560; 73706; 76000; 80048; 80053; 81001; 82962; 83735; 84484; 85025; 87040; 87077; 87086; 87186; 93005; 96372; 96374; 96375; 97110; 97116; 97161; 97166; 97530; 97535; 99283; A9281; C1713; J0131; J0330; J0690; J0696; J1100; J1170; J1650; J1815 ×2; J2405; J2704; J3010; J3370; J3490; J7030; J7040; J8597; Q0163; Q9967

== ENCOUNTER → 2020-02-24 09:36 | Outpatient (BNVA) | payer MEDICARE, SELFPAY | PROVIDERS: PCP Family Medicine; Visit Provider Orthopaedic Surgery | DX: Z47.89 Encounter for other orthopedic aftercare (principal); S82.142D Displaced bicondylar fracture of left tibia, subsequent encounter for closed fracture with routine healing; X58.XXXD Exposure to other specified factors, subsequent encounter | CPT/HCPCS: 73562 ==

== ENCOUNTER → 2020-04-11 08:57 | Outpatient (BNVA) | payer MEDICARE, SELFPAY | PROVIDERS: PCP Family Medicine; Visit Provider Orthopaedic Surgery | DX: Z47.89 Encounter for other orthopedic aftercare (principal); S82.202D Unspecified fracture of shaft of left tibia, subsequent encounter for closed fracture with routine healing; S82.402D Unspecified fracture of shaft of left fibula, subsequent encounter for closed fracture with routine healing; S82.142D Displaced bicondylar fracture of left tibia, subsequent encounter for closed fracture with routine healing; X58.XXXD Exposure to other specified factors, subsequent encounter | CPT/HCPCS: 73562 ==

== ENCOUNTER 2020-04-12 12:30 | Outpatient (RCR) | payer MEDICARE, SELFPAY | END 2020-04-16 23:59 | disposition home or self-care (01) | LOC: MPT 12:30 | PROVIDERS: PCP Family Medicine; Referring Provider Orthopaedic Surgery; Visit Provider Orthopaedic Surgery | DX: Z47.89 Encounter for other orthopedic aftercare (principal); S82.142D Displaced bicondylar fracture of left tibia, subsequent encounter for closed fracture with routine healing; X58.XXXD Exposure to other specified factors, subsequent encounter | CPT/HCPCS: 97110; 97162 ==

== ENCOUNTER 2020-04-17 06:00 | Outpatient (RCR) | payer MEDICARE, SELFPAY | END 2020-05-17 23:59 | disposition home or self-care (01) | LOC: MPT 06:00 | PROVIDERS: PCP Family Medicine; Referring Provider Orthopaedic Surgery; Visit Provider Orthopaedic Surgery | DX: Z47.89 Encounter for other orthopedic aftercare (principal) | CPT/HCPCS: 97110; 97112; 97116; 97140; 97530 ==

== ENCOUNTER 2020-05-18 06:00 | Outpatient (RCR) | payer MEDICARE, SELFPAY | END 2020-06-16 23:59 | disposition home or self-care (01) | LOC: MPT 06:00 | PROVIDERS: PCP Family Medicine; Referring Provider Orthopaedic Surgery; Visit Provider Orthopaedic Surgery | DX: Z47.89 Encounter for other orthopedic aftercare (principal) | CPT/HCPCS: 97110; 97112; 97116 ==

== ENCOUNTER → 2020-05-23 09:46 | Outpatient (BNVA) | payer MEDICARE, SELFPAY | PROVIDERS: PCP Family Medicine; Visit Provider Orthopaedic Surgery | DX: Z48.89 Encounter for other specified surgical aftercare (principal); S82.142D Displaced bicondylar fracture of left tibia, subsequent encounter for closed fracture with routine healing; X58.XXXD Exposure to other specified factors, subsequent encounter | CPT/HCPCS: 73560 ==

== ENCOUNTER → 2020-07-04 10:45 | Outpatient (BNVA) | payer MEDICARE, SELFPAY | PROVIDERS: PCP Family Medicine; Visit Provider Orthopaedic Surgery | DX: Z48.89 Encounter for other specified surgical aftercare (principal); S82.142D Displaced bicondylar fracture of left tibia, subsequent encounter for closed fracture with routine healing; X58.XXXD Exposure to other specified factors, subsequent encounter | CPT/HCPCS: 73560 ==

== ENCOUNTER → 2021-03-20 10:02 | Outpatient (BNVA) | payer MEDICARE, SELFPAY | PROVIDERS: PCP Family Medicine; Visit Provider Orthopaedic Surgery | DX: S82.402A Unspecified fracture of shaft of left fibula, initial encounter for closed fracture (principal); S82.142A Displaced bicondylar fracture of left tibia, initial encounter for closed fracture; X58.XXXA Exposure to other specified factors, initial encounter | CPT/HCPCS: 73560; 73565 ==

== ENCOUNTER → 2023-06-12 11:01 | Outpatient (BNVA) | payer MEDICARE, SELFPAY | PROVIDERS: PCP Family Medicine; Visit Provider Orthopaedic Surgery | DX: M25.562 Pain in left knee (principal); S82.142A Displaced bicondylar fracture of left tibia, initial encounter for closed fracture; X58.XXXA Exposure to other specified factors, initial encounter | CPT/HCPCS: 36415; 72110; 73560; 73565; 80053; 81003; 85025; 99214 ==

== ENCOUNTER → 2023-06-16 11:11 | Outpatient (BNVA) | payer MEDICARE, SELFPAY | PROVIDERS: PCP Family Medicine; Visit Provider Family Medicine | DX: Z01.818 Encounter for other preprocedural examination (principal) | CPT/HCPCS: 93005 ==

== ENCOUNTER 2023-06-27 08:12 | Day surgery (SDC) | payer MEDICARE, SELFPAY ==
[2023-06-27] VITALS (16 sets, daily range): BP systolic 104–150; BP diastolic 62–89; PULSE 86–105; RESP 14–18; TEMP 36.1–36.4; O2SAT 91–100; BMI 56.6
[2023-06-27 08:29] LABS: OR HCG Qualitative Urine Negative (Negative)
[2023-06-27 08:46] LABS: Glucose Point of Care 377 mg/dL (70-110)
[2023-06-27] MEDS: sodium chloride 0.9% 1,000 ML 30 ML IV (08:53)
[2023-06-27] MEDS: insulin regular-human 100 units/1 mL 10 UNIT IVP (09:05)
[2023-06-27] MEDS: scopolamine 1.5 Patch 1 PATCH TRANSDERMA (09:15)
[2023-06-27 10:08] LABS: Glucose Point of Care 237 mg/dL (70-110)
--- NOTE | 2023-06-27 10:10 | W.PM.OPSUD ---
Surgery/Procedure H&P Update DATE OF PROCEDURE: June 27, 2023 DATE H&P PERFORMED: 06/16/23 H&P UPDATE INFORMATION: I have reviewed H&P completed within last 30 days, I have examined patient prior to procedure and No changes to prior documentation PREOP DIAGNOSIS: Painful hardware PLANNED PROCEDURE: Operation Date: 06/27/23 09:55 Proposed Procedures p Hardware Removal Tibial Plateau(Left) - Cruzito Hutson DO
[2023-06-27] MEDS: ceFAZolin 2,000 MG in sodium chloride 0.9% (plus) 50 ML 100 MG IV (10:19)
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
[2023-06-27] MEDS: ceFAZolin 1,000 MG in sodium chloride 0.9% (plus) 50 ML 100 MG IV (10:38)
[2023-06-27] MEDS: fentaNYL 50 mcg/mL INJ 2mL IVP (11:46)
[2023-06-27] MEDS: ondansetron 2 mg/ML SDV 2 mL 4 MG IVP ×2 (11:50→11:58)
--- NOTE | 2023-06-27 11:51 | P.OP_ITS ---
Operative Report Date of procedure: June 27, 2023 Pre-op diagnosis: Painful hardware left knee Post-op diagnosis: same Procedure done: Removal of deep hardware from left knee Surgeon: Cruzito Hutson DO Estimated blood loss (mL): 25 Procedure: Removal of hardware from left knee Patient is a previous tibial plateau fracture had a lateral plate. This plate was removed during surgery. Patient was brought to the procedure after undergoing anesthesia was placed in supine position where the patient well- padded patient's prepped and nasal fashion. Skin incision made using previous skin incision. The 4 proximal screws were removed. And then incision made distally to remove the 3 distal screws. Once the screw was removed the plate was then wedged off the bone. Once the plate was removed wounds were irrigated and closed with Vicryl and christiano. Sterile dressings were applied patient transferred to PACU in stable addition.
[2023-06-27 12:00] LABS: Glucose Point of Care 188 mg/dL (70-110)
[2023-06-27] MEDS: metoclopramide 5 mg/mL SDV 2 mL 10 MG IVP (12:07)
--- NOTE | 2023-06-27 12:41 | XR_ITS ---
WS: [id number] Left leg including the tibia and fibula, C-arm fluoroscopy views, 06/27/2023 Clinical Data: or pic, hardware removal Comparison: Both knees, 06/12/2023 Findings: Dr. Hutson removed the internal fixation orthopedic hardware from the left tibia. XR/XR tibia fibula LT 2V [id number] Impression: Removal of orthopedic hardware from left tibia.
[2023-06-27] MEDS: HYDROcodone-acetaminophen 10-325 mg Tablet 1 TAB PO (12:44)
--- NOTE | 2023-06-27 13:21 | ANE.PACU2 ---
Inpatient post-anesthesia follow up: Airway intact: Yes Vital signs: Temperature 97.4 F Pulse Rate 105 Respiratory Rate 18 Blood Pressure 136/86 Pulse Oximetry 96 Oxygen Delivery Me thod Nasal Cannula Oxygen Flow Rate 2 Fraction of Inspir ed Oxygen Hydration adequate: Yes Nausea and vomiting: No Pain level: 1 Mental status: Baseline
== END 2023-06-27 13:21 | disposition home or self-care (01) ==
PROVIDERS: PCP Nurse Practitioner Family; Visit Provider Orthopaedic Surgery
PROC: (CPT 20680; principal; 2023-06-27 09:45)
DX: T85.848A Pain due to other internal prosthetic devices, implants and grafts, initial encounter (principal); Y79.8 Miscellaneous orthopedic devices associated with adverse incidents, not elsewhere classified
CPT/HCPCS: 20680; 36416; 73590; 76000; 81025; 82962; J0330; J0690; J1100; J1170; J1815; J1885; J2405; J2704; J2765; J3010; J3490; J7030

== ENCOUNTER → 2023-07-03 15:18 | Outpatient (BNVA) | payer MEDICARE, SELFPAY | PROVIDERS: PCP Nurse Practitioner Family; Visit Provider Orthopaedic Surgery | DX: M25.561 Pain in right knee (principal); Z48.89 Encounter for other specified surgical aftercare | CPT/HCPCS: 73562; 99024 ==

== ENCOUNTER → 2023-07-10 07:58 | Outpatient (BNVA) | payer MEDICARE, SELFPAY | PROVIDERS: PCP Nurse Practitioner Family; Visit Provider Orthopaedic Surgery | DX: Z98.890 Other specified postprocedural states (principal); S82.142D Displaced bicondylar fracture of left tibia, subsequent encounter for closed fracture with routine healing; X58.XXXD Exposure to other specified factors, subsequent encounter | CPT/HCPCS: 99024 ==

== ENCOUNTER 2023-07-16 10:10 | Outpatient (CLI) | payer MEDICARE, SELFPAY ==
--- NOTE | 2023-07-16 11:00 | MR_ITS ---
WS: [id number] MRI LUMBAR SPINE NONCONTRAST HISTORY: Back Pain COMPARISON: None available. TECHNIQUE: Sagittal and axial multisequence imaging is submitted. Reversal of the normal cervical lordosis centered at C4-5. Mild contact and posterior displacement of the cervical cord. Mild anterior wedging at T5. Normal lumbar alignment with no compression fractures or marrow edema. Disc spaces and vertebral body heights are well-preserved. Conus terminates normally at L1-2 disc level. L1-L2: Normal. L2-L3: Mild annular disc bulging with facet and ligamentum flavum hypertrophy. Very mild encroachment upon the ventral thecal sac and foramina. No high-grade stenosis. L3-L4: Mild disc bulging with a small proximal LEFT foraminal disc protrusion. Ligamentum flavum and facet arthritis. Disc contacts the ventral thecal sac with subarticular recess encroachment. Mild michelle tral, bilateral subarticular recess and foraminal stenosis. Slightly greater contact on the LEFT L3 a nd L4 nerve roots. L4-L5: Mild annular disc bulging with ligamentum flavum and facet arthritis. Encroachment on the vent ral thecal sac. Mild facet arthritis. Mild central and bilateral subarticular recess encroachment. L5-S1: Normal. Paravertebral soft tissues are normal. MR/MR lumbar spine wo con* [id number] IMPRESSION: 1. Quality of this examination is compromised by body habitus. 2. L3-4: Proximal LEFT foraminal disc protrusion encroaching and contacting th e LEFT L3 and L4 nerve roots. Mild central, bilateral subarticular recess and f oraminal stenosis. 3. L4-5: Mild central and bilateral subarticular recess encroachment. There is mild disc contact on the L5 nerve roots. 4. Mild disc encroachment upon the ventral thecal sac and foramina. No high-gr sheyla stenosis. 5. Prior Schmorl's node defect at L3. 6. Remote mild anterior wedging of T5. 7. Reversal of the normal cervical lordosis at C4-5.
== END 2023-07-16 10:11 | disposition home or self-care (01) ==
LOC: RAD 10:10
PROVIDERS: PCP Nurse Practitioner Family; Visit Provider Orthopaedic Surgery
DX: M51.26 Other intervertebral disc displacement, lumbar region (principal); M48.061 Spinal stenosis, lumbar region without neurogenic claudication; M51.46 Schmorl's nodes, lumbar region
CPT/HCPCS: 72148

== ENCOUNTER → 2023-09-01 10:56 | Outpatient (BNVA) | payer SELFPAY | PROVIDERS: PCP Nurse Practitioner Family; Referring Provider Nurse Practitioner Family; Visit Provider Nurse Practitioner | DX: M19.011 Primary osteoarthritis, right shoulder (principal); R29.898 Other symptoms and signs involving the musculoskeletal system | CPT/HCPCS: 73030 ==

== ENCOUNTER 2023-09-09 06:00 | Outpatient (RCR) | payer OTHER, SELFPAY | END 2023-09-17 23:59 | disposition home or self-care (01) | LOC: MPT 06:00 | PROVIDERS: Visit Provider Orthopaedic Surgery | DX: M54.9 Dorsalgia, unspecified (principal); G89.29 Other chronic pain | CPT/HCPCS: 97110; 97162; G0283 ==

== ENCOUNTER 2023-09-18 06:00 | Outpatient (RCR) | payer OTHER, SELFPAY | END 2023-10-18 23:59 | disposition home or self-care (01) | LOC: MPT 06:00 | PROVIDERS: Visit Provider Orthopaedic Surgery | DX: M54.9 Dorsalgia, unspecified (principal); G89.29 Other chronic pain | CPT/HCPCS: 97110; G0283 ==